=== PATIENT | male | born 1950 | race Caucasian/White ===

== ENCOUNTER 2017-03-02 16:18 | Inpatient (IN) | payer MEDICARE ==
[~2017-03-02] VITALS: Ht 165.1 cm; Wt 57.0 kg
--- NOTE | ~2017-03-02 | O ---
[place], [place] OPERATIVE NOTE NAME: BRETT BLAKE SR UNIT #: [id number] ROOM: 526 DOCTOR: FLAVIA RUANO MD BIRTHDATE: [birth year] DOS: 03/03/2017 GASTROENDOSCOPIC REPORT. INDICATIONS: This is a 67-year-old patient who has presented with tiredness, has been evaluated in his doctor's office, was found to have H and H of 8 and 27, microcytic indices and therefore, the patient had to be admitted for definitive evaluation. The patient has been on ibuprofen 800 mg periodically. PAST MEDICAL HISTORY: Hypothyroidism, gastroesophageal reflux. PAST SURGICAL HISTORY: None. SOCIAL HISTORY: Nonsmoker; however, tobacco user. FAMILY HISTORY: Noncontributory. ALLERGIES: No known medication. MEDICATIONS: Synthroid and Zofran. PROCEDURE: Today's procedure part of investigation is panendoscopy plus biopsy. PREMEDICATION: Versed and Diprivan. SCOPE: Olympus forward-viewing gastroscope Q10 video. REPORT: After putting the patient in the left lateral position and after application of lubricant to the scope, the scope was introduced. Thereafter, under direct visualization, I advanced through the length of the esophagus without difficulty. Hiatal hernia, which is 3 cm was noticed. Gastric pouch was entered. Gastritis was seen. Antral erosions, a small ulceration was noticed. Biopsy obtained. Duodenal bulb, second and third part free of ulcer and lesion obstruction. Air was suctioned out. The patient was extubated after GI reflection of the scope and tolerated the procedure well. IMPRESSION: Multi small erosions in the gastric pouch greater and lesser curvature and antrum, small ulcerations all secondary to nonsteroidal anti-inflammatory, hiatal hernia, gastritis. PLAN AND DISCUSSION: Protonix 40 mg daily would suffice management of the above. However, this patient requires to have 1 unit of packed cell at least, of transfusion to overcome his tiredness, hopefully and also he needs a colonoscopy which is going to be organized as in or outpatient. Workup in progress. He looks very cachectic, we are going to also obtain a screening CT scan of the abdomen and pelvis. Workup in progress. [place], [place] OPERATIVE NOTE NAME: BRETT BLAKE SR UNIT #: [id number] ROOM: 526 DOCTOR: FLAVIA RUANO MD BIRTHDATE: [birth year] FLAVIA RUANO MD CM:OPRECORD:OPERATIVE NOTE [id number] FLAVIA RUANO MD 03/03/17 1430 interface
--- NOTE | ~2017-03-02 | CON ---
[place], [place] REPORT OF CONSULTATION [id number] UN[facility] #: [id number] ROOM: 526 DOCTOR: ALBERTO SANDY MD BIRTHDATE: [birth year] DOS: 03/04/2017 REASON FOR CONSULTATION: Tachycardia. HISTORY OF PRESENT ILLNESS: The patient is a 67-year-old man who has no previously documented history of heart disease or arrhythmias. He was hospitalized on 03/02/2017 after having routine blood work done at the [facility] in [place]. His hemoglobin, 6 months ago, had been 13, but it was now 8.0. He did admit to recent increased fatigue and dyspnea along with chronic constipation. He was found to have a microcytic anemia and heme-positive stools. An upper endoscopy showed gastritis with multiple small erosions and small ulcerations, felt to be due to nonsteroidal anti-inflammatory drugs, etc. It did not appear as though there was any active bleeding or that the potential for blood loss was enough to account for his anemia. He is therefore being scheduled for a colonoscopy on 03/05/2017. In the hospital on a monitor, he has been noted to have several short runs of tachycardia with heart rates as high as 180 beats per minute. The patient is totally asymptomatic from these, but does state that he has been told that his heart rate goes fast as to when he has a lot of doctors in the room. The patient believes that this is a stress reaction and we were asked to see him to assist in its evaluation. PAST MEDICAL HISTORY: Includes: 1. Hypothyroidism. 2. Gastroesophageal reflux disease. 3. Chronic constipation. The patient denies any history of coronary artery disease, myocardial infarction, stroke, hypertension, diabetes or hyperlipidemia. MEDICATIONS: Prior to admission, vitamin B12 1000 mcg p.o. daily, levothyroxine 88 mcg daily, mirtazapine 45 mg at bedtime, Zofran 2 mg b.i.d., prazosin 7 mg at bedtime and simvastatin 10 mg at bedtime. ALLERGIES: The patient has no known drug allergies. REVIEW OF SYSTEMS: The patient denies diplopia or loss of vision. He denies lightheadedness or syncope. He does admit to increased dyspnea and fatigue lately. He denies nausea or vomiting. He denies hemoptysis or hematemesis. He denies fevers, chills, sweats or recent weight change. He denies any focal weakness. He denies any change in bowel or bladder habits, but he does have chronic constipation. He denies hematochezia or melena. He denies any blood in his urine. He denies any peripheral edema. He has not had any swollen joints. He denies heat or cold intolerance and denies polydipsia or polyuria. He has not had any skin rashes lately. The remainder of the review of systems is negative except as noted above. FAMILY HISTORY: Negative for early coronary artery disease, although his father did have a history of coronary artery disease and his mother had a history of [place], [place] REPORT OF CONSULTATION NAME: BRETT BLAKE SR UNIT #: [id number] ROOM: 526 DOCTOR: ALBERTO SANDY MD BIRTHDATE: [birth year] diabetes. SOCIAL HISTORY: The patient is retired from his job as a factory laborer. He does not drink alcohol, but he has smoked. PHYSICAL EXAMINATION: GENERAL: The patient is a slender white male who is awake, alert and oriented. He does appear to be quite anxious. VITAL SIGNS: Pulse is 87 and regular, blood pressure is 108/62. He is afebrile. He weighs 57 kg and has a body mass index of 20.9. HEENT: Normocephalic, atraumatic. Extraocular muscles are intact. Sclerae are clear. Pupils are equal, round and reactive to light. The oral mucosa is moist. Tongue is midline. NECK: Supple. He has no jugular distention. Carotids are full. I heard no bruits. He had no neck or supraclavicular masses and no thyromegaly. LUNGS: Respirations were unlabored. His chest was clear to auscultation and percussion. He had no presacral edema or chest wall tenderness. CARDIOVASCULAR: His heart had a regular rhythm with an S4 gallop, but no S3. The PMI was not displaced. He had no precordial heave, lift or thrill and no significant murmurs. ABDOMEN: Soft and normally active without masses, organomegaly or bruits. EXTREMITIES: Showed no edema. Peripheral pulses were easily palpated bilaterally. LABORATORY DATA: His electrocardiogram was unremarkable. An echocardiogram on 03/03/2017 showed normal left ventricular size and function with an ejection fraction of 70%. No valve abnormalities or pericardial effusion were seen. Hemoglobin today after transfusion is 9.4. White count was 7100, platelet count 226,000. Sodium 140, potassium 3.7, BUN 19, creatinine 1.11. Sugar is 142. Serial troponin levels are normal. TSH is slightly elevated at 6.35. I did review the patient's rhythm strips. They show an AV phu reentrant tachycardia. I did not see anything that looked like atrial fibrillation. IMPRESSION: 1. Atrioventricular phu reentrant tachycardia. 2. Anemia with heme-positive stools. Upper endoscopy shows gastritis. Colonoscopy is pending. 3. History of hypothyroidism, on replacement. Currently, he is chemically mildly hypothyroid. PLAN: The patient does have brief runs of AV phu reentrant tachycardia, but no symptoms. I think that if necessary, we can treat this with beta blockers, but for now, I think that we can just proceed with his colonoscopy as scheduled and make further adjustments in medications as needed after the colonoscopy has been completed. [place], [place] REPORT OF CONSULTATION NAME: LOU BRETT WANG UNIT #: [id number] ROOM: 526 DOCTOR: ALBERTO SANDY MD BIRTHDATE: [birth year] We will follow him with his other physicians and we thank the hospitalist physicians for asking our advice regarding his care. ALBERTO SANDY MD CM:CONSTR:REPORT OF CONSULTATION 12 03/04/17 [id number] interface
--- NOTE | ~2017-03-02 | O ---
[place], [place] OPERATIVE NOTE NAME: BRETT BLAKE SR UNIT #: [id number] ROOM: 526 DOCTOR: FLAVIA RUANO MD BIRTHDATE: [birth year] DOS: GASTROENDOSCOPIC REPORT. HISTORY OF PRESENT ILLNESS: The patient has presented with one of the complaints being anemia, also past medical history of gastroesophageal reflux, hypothyroidism, GERD. PAST SURGICAL HISTORY: Nil. SOCIAL HISTORY: Tobacco use, nonalcohol consumer. FAMILY HISTORY: Noncontributory. ALLERGIES: No known medication. MEDICATIONS: Medication list has been reviewed. PROCEDURE: Today's procedure part of investigation is colonoscopy in search of source of anemia. PREMEDICATION: Versed and Diprivan. SCOPE: Olympus folding colonoscope 10L video. REPORT: After putting the patient in the left lateral position and after application of lubricant to the scope, the scope was introduced; thereafter, under direct visualization, advanced through the length of colon with difficulty in the left side and till I pass the splenic flexure and mid transverse colon and onward, solid column of the stool is appreciated and despite large volume of lavage is . Therefore, the scope was gradually withdrawn. The patient extubated, tolerated procedure well. IMPRESSION: Retained solid stool in the colon. PLAN AND DISCUSSION: We are going to schedule this patient as outpatient for colonoscopy with 2 days prep protocol and as far as his other endoscopic finding from prior endoscopy is concerned, multiple small gastric erosions and small antral ulcerations have been identified, which secondary to nonsteroidal anti-inflammatory and also his other findings previously have been hiatal hernia and gastritis. He can be fed regular diet, discharged and followed up as outpatient. His latest blood count has been reassessed and H and Hof 8.8 and 29.9 with microcytic indices and normal platelet count has been recognized. [place], [place] OPERATIVE NOTE NAME: BRETT BLAKE SR UNIT #: [id number] ROOM: 526 DOCTOR: FLAVIA RUANO MD BIRTHDATE: [birth year] FLAVIA RUANO MD CM:OPRECORD:OPERATIVE NOTE [id number] FLAVIA RUANO MD 03/05/17 1445 interface
[~2017-03-02 16:18] MED LIST: SEPTRA DS 800 M1 TAB PO; SYNTHROID,LEVO88 MCG PO; ZITHROMAX250 MG PO; Zofran4 MG PO
[2017-03-02 16:24] VITALS: BP 135/73
[2017-03-02 16:59] LABS: BASO % 0.6 % (0.0-1.0); EOS # 0.1 10*3/uL (0.0-0.4); EOS % 0.7 % (1.0-4.0); HEMATOCRIT 27.7 % (42.0-52.0); LYMPH # 1.5 10*3/uL (1.3-4.4); LYMPH % 21.3 % (27.0-41.0); MEAN CELL VOLUME 78.2 fl (80.0-94.0); MEAN CORPUSCULAR HGB 22.6 pg (27.0-31.0); MEAN CORPUSCULAR HGB CONC 28.9 g/dl (33.0-37.0); MEAN PLATELET VOLUME 9.1 fl (9.6-12.3); MONO # 0.5 10*3/uL (0.1-1.0); MONO % 6.9 % (3.0-9.0); NEUT % 70.2 % (47.0-73.0); PLATELET COUNT AUTOMATED 239 10*3/uL (130-400); RED BLOOD COUNT 3.54 10*6/uL (4.50-5.90); RED CELL DISTRI WIDTH 16.3 % (0-14.5); WHITE BLOOD COUNT 7.1 10*3/uL (4.8-10.8)
[2017-03-02 17:16] LABS: ALBUMIN 3.3 gm/dl (3.1-4.5); ALKALINE PHOSPHATASE 74 U/L (45-117); BUN 19 mg/dl (7-24); CHLORIDE 111 mmol/L (98-107); CREATININE 1.09 mg/dL (0.70-1.30); IRON 12 ug/dL (65-175); LIPASE 129 U/L (73-393); MAGNESIUM 2.1 mg/dL (1.5-2.1); POTASSIUM 3.9 mmol/L (3.5-5.1); SGOT/AST 22 IU/L (3-35); SGPT/ALT 22 U/L (12-78); SODIUM 142 mmol/L (136-145); TOTAL PROTEIN 6.8 gm/dL (6.4-8.2)
[2017-03-02 17:17] LABS: CKMB 1.1 ng/ml (0.5-3.6); CPK 58 U/L (39-308)
[2017-03-02 17:18] LABS: ACT PARTIAL THROMBO TIME 21.4 SECONDS (20.8-31.5)
[2017-03-02 17:20] LABS: TROPONIN I < 0.015 ng/ml (<0.045)
[2017-03-02 18:03] VITALS: BP 122/77
[2017-03-02 18:06] LABS: FERRITIN 9.9 ng/mL (22.0-322.0)
[2017-03-02 18:48] VITALS: BP 124/74
--- NOTE | 2017-03-02 20:15 | NUR ---
REPORT FROM FRANK JIMENEZ RN
[2017-03-02 20:21] VITALS: BP 113/72
--- NOTE | 2017-03-02 20:25 | NUR ---
REPORT CALLED TO JAROD ON 5E, PATIENT INFORMED. PATIENT IS 109 SINUS TACHYCARDIC ON MONITOR. IV INTACT. PATIENT ALERT, PLEASANT AND COOPERATIVE. 95% ON ROOM AIR.
--- NOTE | 2017-03-02 20:37 | NUR ---
A 67, admitted to , under the services of SOUMYA Hernandez DO with a diagnosis of ANEMIA. Chief complaint is SHORTNESS OF BREATH. Patient arrived via stretcher from ER. Monitor applied. Initial assessment completed. Vital signs taken and recorded. SOUMYA HERNANDEZ DO notified of admission to the unit. Orders received. See assessment for past medical history, medications and allergies. Patient and/or family oriented to unit. [facility] visitation policy reviewed. Clothing/patient valuable form completed. JOAQUIM ARMSTRONG
[2017-03-02 21:00] VITALS: BP 107/79
--- NOTE | 2017-03-02 21:02 | NUR ---
MED REC COMPLETED WITH PATIENT ALERT AND ORIENTED TO PERSON PLACE AND TIME BY MEDICATION LIST FROM HOME
[2017-03-02] MEDS ORDERED: PRAZOSIN HCL2 MG PO (21:07)
[2017-03-02] MEDS ORDERED: MIRTAZAPINE45 MG PO (21:10)
[2017-03-02] MEDS ORDERED: PRAZOSIN HCL5 MG PO (21:10)
[2017-03-02] MEDS ORDERED: B-121000 MCG PO (21:11)
[2017-03-02] MEDS ORDERED: SIMVASTATIN10 MG PO (21:11)
[2017-03-03] VITALS (9 sets, daily range): BP systolic 92–113; BP diastolic 46–75
--- NOTE | 2017-03-03 02:06 | NUR ---
PATIENT MEDICATED WTH PRN TYLENOL FOR HEADACHE RATED 7/10 ON A 0/10 PAIN SCALE
--- NOTE | 2017-03-03 02:21 | NUR ---
24 HR chart check completed.
--- NOTE | 2017-03-03 03:06 | NUR ---
PATIENT STATES MEDICATION NOT EFFECTIVE
--- NOTE | 2017-03-03 05:44 | NUR ---
PATIENT MEDICATED WITH PRN NORCO FOR HEADACHE RATED 8/10 ON A 0/10 PAIN SCALE
[2017-03-03 06:26] LABS: BASO % 0.7 % (0.0-1.0); EOS # 0.1 10*3/uL (0.0-0.4); EOS % 2.3 % (1.0-4.0); HEMATOCRIT 28.3 % (42.0-52.0); HEMOGLOBIN 8.1 g/dl (14.0-18.0); LYMPH # 1.5 10*3/uL (1.3-4.4); LYMPH % 25.2 % (27.0-41.0); MEAN CELL VOLUME 79.1 fl (80.0-94.0); MEAN CORPUSCULAR HGB 22.6 pg (27.0-31.0); MEAN CORPUSCULAR HGB CONC 28.6 g/dl (33.0-37.0); MEAN PLATELET VOLUME 10.1 fl (9.6-12.3); MONO # 0.5 10*3/uL (0.1-1.0); MONO % 8.6 % (3.0-9.0); NEUT # 3.8 10*3/uL (2.3-7.9); PLATELET COUNT AUTOMATED 263 10*3/uL (130-400); RED BLOOD COUNT 3.58 10*6/uL (4.50-5.90); RED CELL DISTRI WIDTH 16.5 % (0-14.5)
[2017-03-03 06:54] LABS: ACT PARTIAL THROMBO TIME 21.5 SECONDS (20.8-31.5)
[2017-03-03 06:59] LABS: BUN 22 mg/dl (7-24); CHLORIDE 110 mmol/L (98-107); CHOLESTEROL 133 mg/dL (<200); CREATININE 1.05 mg/dL (0.70-1.30); HDL CHOLESTEROL 67 mg/dl (40-60); LDL CHOLESTEROL 56 mg/dL (9-159); MAGNESIUM 2.2 mg/dL (1.5-2.1); PHOSPHOROUS 3.6 mg/dL (2.5-4.9); POTASSIUM 3.8 mmol/L (3.5-5.1); SODIUM 142 mmol/L (136-145); TRIGLYCERIDES 50 mg/dl (<150); VLDL CHOLESTEROL 10 mg/dL (6-40)
--- NOTE | 2017-03-03 09:02 | NUR ---
Kennel Hand in to talk to patient. Patient states lives at HOME IN APARTMENT ALONE with . There are 3 steps in the home. Physician: SHERIF Pharmacy: [facility] Home health services: NONE Patient's level of ADLs: INDEPENDENT Patient has working utilities: YES DME: NONE Follow-up physician's appointment after d/c: WILL BE MADE PRIOR TO DC Does patient want to access PORTAL?: Discharge plan HOME. REJI RANKIN PT [facility] ST[facility]. WILLING TO GO TO [facility] IF BED AVAILABLE. CALLED [facility] AND INFO GIVEN TO JOSE ALEJANDRO WHO STATES A QUALITY IMPROVEMENT COORDINATOR WILL BE IN TOUCH WITH ME. I HAVE PROVIDED MY PH NUMBER.
--- NOTE | 2017-03-03 09:40 | NUR ---
CLINICALS FAXED TO [facility] AT [facility].
--- NOTE | 2017-03-03 10:30 | NUR ---
IN TO SEE PATIENT AT THIS TIME. OCCULT STOOL + UPON EXAM.
--- NOTE | 2017-03-03 11:07 | NUR ---
JAQUI NEWTON'S CELL AND NOTIFIED OF CONSULT
--- NOTE | 2017-03-03 13:46 | NUR ---
FLEET MAINTENANCE MANAGER VS. PER [facility] AT [facility], THEY HAVE A BED AND WILL SEND TRANSPORTATION. PT DOESNT WANT TO GO NOW. WANTS TO STAY HERE UNDER HIS MEDICARE. INFORMED HE MAY HAVE COPAY OR DEDUCTABLE WITH MEDICARE THAT [facility] DOESNT PAY. STILL WANTS TO STAY HERE. [facility] NOTIFIED. ASKED NURSE REGULATOR OPERATOR FOR [facility] TO INFORM DR DAO. REFUSAL TO TRANSFER FORM FAXED TO [facility] AND BECKY DE LEON IN BILLING.
[2017-03-03 17:54] LABS: BUN 19 mg/dl (7-24); CHLORIDE 105 mmol/L (98-107); CREATININE 1.13 mg/dL (0.70-1.30); PHOSPHOROUS 2.6 mg/dL (2.5-4.9); POTASSIUM 3.6 mmol/L (3.5-5.1); SODIUM 140 mmol/L (136-145)
--- NOTE | 2017-03-03 20:00 | NUR ---
PATIENT LYING IN BED, VISITORS AT BEDSIDE. PATIENT STATED HE IS FEELING BETTER. FAMILY IS WANTING TO TALK TO THE DR. IN THE AM. PATIENT LEFT WITH CALL LIGHT IN REACH.
--- NOTE | 2017-03-03 23:38 | NUR ---
24 HR chart check completed.
[2017-03-04] VITALS (8 sets, daily range): BP systolic 85–126; BP diastolic 52–62
[2017-03-04 06:10] LABS: HEMOGLOBIN 7.3 g/dl (14.0-18.0); MEAN CELL VOLUME 77.9 fl (80.0-94.0); MEAN CORPUSCULAR HGB 22.7 pg (27.0-31.0); MEAN CORPUSCULAR HGB CONC 29.2 g/dl (33.0-37.0); MEAN PLATELET VOLUME 10.2 fl (9.6-12.3); PLATELET COUNT AUTOMATED 226 10*3/uL (130-400); RED BLOOD COUNT 3.21 10*6/uL (4.50-5.90); RED CELL DISTRI WIDTH 16.6 % (0-14.5); WHITE BLOOD COUNT 7.1 10*3/uL (4.8-10.8)
[2017-03-04 06:41] LABS: MICROCYTOSIS SLIGHT; TOTAL CELLS COUNTED 100 #CELLS
[2017-03-04 06:42] LABS: ACANTHOCYTES FEW; PLATELET SUFFICIENCY NORMAL (NORMAL); SCHISTOCYTES FEW
[2017-03-04 06:48] LABS: ALKALINE PHOSPHATASE 62 U/L (45-117); BUN 19 mg/dl (7-24); CHLORIDE 105 mmol/L (98-107); CREATININE 1.11 mg/dL (0.70-1.30); POTASSIUM 3.7 mmol/L (3.5-5.1); SGOT/AST 17 IU/L (3-35); SGPT/ALT 20 U/L (12-78); SODIUM 140 mmol/L (136-145); TOTAL PROTEIN 6.4 gm/dL (6.4-8.2)
--- NOTE | 2017-03-04 07:30 | NUR ---
ASSUMED CARE OF PT AT THIS TIME, PT ALERT AND ORIENTED SITTING UP IN BED, VOICES NO CONCERNS AT THIS TIME
--- NOTE | 2017-03-04 10:05 | NUR ---
BLOOD INITIATED AT THIS TIME.
--- NOTE | 2017-03-04 12:40 | NUR ---
BLOOD COMPLETE AT THIS TIME, PT TOLERATED WELL.
--- NOTE | 2017-03-04 14:04 | NUR ---
CALL PLACED TO R/T INCREASED HEART RATE, DR PURCELL STATES THAT WILL CONTINUE TO MONITOR
--- NOTE | 2017-03-04 14:52 | NUR ---
CALL PLACED TO DR CABALLERO OFFICE REGARDING NEW ORDER FOR CONSULT, SPOKE WITH FERNIE
[2017-03-04 15:09] LABS: HEMATOCRIT 31.6 % (42.0-52.0); HEMOGLOBIN 9.4 g/dl (14.0-18.0)
--- NOTE | 2017-03-04 20:00 | NUR ---
WATCHING TV WITH SON PRESENT. RESPIRATIONS EASY. LUNGS DIMINISHED WITH POSTERIOR BASE CRACKLES. PULSE OX 98% RA. ABD SOFT WITH NORMOACTIVE BOWEL SOUNDS. COLO PREP CONTINUED WITH PATIENT TOLERATING. OFFERED AND EDUCATED REGARDING TEDS AND SCDS, PATIENT ADAMENTLY DECLINED. CALL LIGHT WITHIN REACH. NO VOICED COMPLAINTS
--- NOTE | 2017-03-04 22:00 | NUR ---
CONTINUES TO DRINK COLO PREP.
[2017-03-05] VITALS (8 sets, daily range): BP systolic 108–127; BP diastolic 64–78
--- NOTE | 2017-03-05 00:30 | NUR ---
REMAINS AWAKE. RESPIRATIONS EASY. VSS. AWARE OF NPO STATUS FOR TESTING IN AM. CALL LIGHT WITHIN REACH. NO VOICED COMPLAINTS
--- NOTE | 2017-03-05 02:30 | NUR ---
REMAINS AWAKE. STATES COLO PREP INEFFECTIVE UP TO THIS POINT. PATIENT ENCOUARGED TO CLOSE EYES AND ATTEMPT TO GET SOME REST. VOICED UNDERSTANDING. WILL MONITOR
--- NOTE | 2017-03-05 04:30 | NUR ---
RESTING WITH EYES CLOSED. RESPIRATIONS EASY. CALL LIGHT WITHIN REACH
--- NOTE | 2017-03-05 06:00 | NUR ---
FLEETS ENEMA GIVEN. PATIENT TOLERATED WELL. NO BM DESPITE COLO PREP
[2017-03-05 07:24] LABS: BASO % 0.1 % (0.0-1.0); HEMATOCRIT 29.9 % (42.0-52.0); HEMOGLOBIN 8.8 g/dl (14.0-18.0); LYMPH # 1.2 10*3/uL (1.3-4.4); LYMPH % 7.6 % (27.0-41.0); MEAN CELL VOLUME 79.9 fl (80.0-94.0); MEAN CORPUSCULAR HGB 23.5 pg (27.0-31.0); MEAN CORPUSCULAR HGB CONC 29.4 g/dl (33.0-37.0); MEAN PLATELET VOLUME 10.3 fl (9.6-12.3); MONO # 0.9 10*3/uL (0.1-1.0); MONO % 5.7 % (3.0-9.0); PLATELET COUNT AUTOMATED 242 10*3/uL (130-400); RED BLOOD COUNT 3.74 10*6/uL (4.50-5.90); RED CELL DISTRI WIDTH 16.8 % (0-14.5); WHITE BLOOD COUNT 16.2 10*3/uL (4.8-10.8)
[2017-03-05 07:57] LABS: BUN 19 mg/dl (7-24); CHLORIDE 108 mmol/L (98-107); CREATININE 1.16 mg/dL (0.70-1.30); POTASSIUM 3.9 mmol/L (3.5-5.1); SODIUM 141 mmol/L (136-145)
--- NOTE | 2017-03-05 08:00 | NUR ---
RESTING COMFORTABLY WITH NO VOICED C/O OFFERED. SEE SHIFT ASSESSMENT.
--- NOTE | 2017-03-05 11:27 | NUR ---
SPOKE WITH DR Daniel LIMA AT DR RUANO'S REQUEST TO INFORM HER THAT FROM GI STAND POINT, PT CAN BE DISCHARGED & SCHEDULE OP COLONOSCOPY.
[2017-03-05] MEDS ORDERED: PHARMASSURE FO0.4 MG PO (16:22)
[2017-03-05] MEDS ORDERED: FEROSUL325 MG PO (16:22)
--- NOTE | 2017-03-05 18:12 | NUR ---
Discharge instructions reviewed with patient/family. Patient receptive and verbalizes understanding. Written instructions given to patient/family. WENDY BARAJAS
== END 2017-03-05 18:12 | disposition home or self-care (01) | DRG 378 ==
LOC: ED 16:18 → 5E 18:41 → EDHOLD 18:41 → 5E 19:42
PROVIDERS: Emergency Medicine; Internal Medicine; ADMIT Internal Medicine
PROC: 0DJD8ZZ Inspection of Lower Intestinal Tract, Via Natural or Artificial Opening Endoscopic (ICD-10-PCS; principal; 2017-03-02)
PROC: 0DB68ZX Excision of Stomach, Via Natural or Artificial Opening Endoscopic, Diagnostic (ICD-10-PCS; 2017-03-03)
PROC: 30233N1 Transfusion of Nonautologous Red Blood Cells into Peripheral Vein, Percutaneous Approach (ICD-10-PCS; 2017-03-04)
DX: K25.4 Chronic or unspecified gastric ulcer with hemorrhage (principal); R65.10 Systemic inflammatory response syndrome (SIRS) of non-infectious origin without acute organ dysfunction; I48.0 Paroxysmal atrial fibrillation; E87.8 Other disorders of electrolyte and fluid balance, not elsewhere classified; E44.1 Mild protein-calorie malnutrition; I47.1 Supraventricular tachycardia; J44.9 Chronic obstructive pulmonary disease, unspecified; K21.9 Gastro-esophageal reflux disease without esophagitis; E03.9 Hypothyroidism, unspecified; D50.9 Iron deficiency anemia, unspecified; E53.8 Deficiency of other specified B group vitamins; I49.1 Atrial premature depolarization; K29.00 Acute gastritis without bleeding; T39.395A Adverse effect of other nonsteroidal anti-inflammatory drugs [NSAID], initial encounter; K44.9 Diaphragmatic hernia without obstruction or gangrene; K59.09 Other constipation; Z71.6 Tobacco abuse counseling; Z72.0 Tobacco use; Z87.01 Personal history of pneumonia (recurrent); Z68.20 Body mass index [BMI] 20.0-20.9, adult; Z83.3 Family history of diabetes mellitus; Z82.49 Family history of ischemic heart disease and other diseases of the circulatory system; Z79.899 Other long term (current) drug therapy; F17.200 Nicotine dependence, unspecified, uncomplicated

== ENCOUNTER 2017-04-30 16:04 | Emergency (ER) | payer MEDICARE, OTHER ==
[~2017-04-30] VITALS: Ht 165.1 cm; Wt 56.7 kg
[~2017-04-30 16:04] MED LIST changes: +B-121000 MCG PO; +FEROSUL325 MG PO; +MIRTAZAPINE45 MG PO; +PHARMASSURE FO0.4 MG PO; +PRAZOSIN HCL2 MG PO; +PRAZOSIN HCL5 MG PO; +SIMVASTATIN10 MG PO
[2017-04-30] MEDS ORDERED: CLEOCIN HCL300 MG PO (17:06)
== END 2017-04-30 17:52 | disposition home or self-care (01) ==
LOC: ED 16:04
DX: L72.3 Sebaceous cyst (principal); Z79.899 Other long term (current) drug therapy; K21.9 Gastro-esophageal reflux disease without esophagitis; I48.0 Paroxysmal atrial fibrillation; E03.9 Hypothyroidism, unspecified; E87.8 Other disorders of electrolyte and fluid balance, not elsewhere classified; F17.200 Nicotine dependence, unspecified, uncomplicated

== ENCOUNTER 2018-04-29 11:02 | Inpatient (IN) | payer OTHER, MEDICARE ==
[~2018-04-29] VITALS: Ht 165.1 cm; Wt 52.8 kg
--- NOTE | ~2018-04-29 | EKG ---
[place], [place] ELECTROCARDIOGRAM REPORT NAME: BRETT BLAKE SR UNIT #: [id number] ROOM: 421 DOCTOR: LUCAS DRAFT REPORT BIRTHDATE: [birth year] [facility] Test Date: 2018-04-29 Test Time: 12:10:55 Pat Name: BRETT BLAKE Department: Room: 421 Gender: M [employer] Sigma Black Trainer: Dyana Burroughs : 1950 Requested By: ABRAHAM PURCELL Order Number: [id number] Reading MD: Anton Chandler MD Measurements Intervals [place] Rate: 97 P: 86 [place]: 70 QRS: -71 QRSD: 79 T: 59 QT: 352 QTc: 447 Interpretive Statements Sinus tachycardia Frequent premature atrial complexes No previous ECG available for comparison Electronically Signed On 04-30-2018 13:32:19 PDT by Anton Chandler MD CM:EKGRPT:ELECTROCARDIOGRAM REPORT 1210 1332 ABRAHAM GARVIN DRAFT REPORT ABRAHAM PURCELL DO
[~2018-04-29 11:02] MED LIST changes: +CLEOCIN HCL300 MG PO
[2018-04-29 11:06] VITALS: BP 135/83
[2018-04-29 11:38] LABS: BASO % 0.4 % (0.0-1.0); EOS # 0.1 10*3/uL (0.0-0.4); EOS % 1.6 % (1.0-4.0); HEMATOCRIT 41.3 % (42.0-52.0); LYMPH # 1.5 10*3/uL (1.3-4.4); LYMPH % 18.9 % (27.0-41.0); MEAN CELL VOLUME 97.9 fl (80.0-94.0); MEAN CORPUSCULAR HGB 30.8 pg (27.0-31.0); MEAN CORPUSCULAR HGB CONC 31.5 g/dl (33.0-37.0); MEAN PLATELET VOLUME 8.4 fl (9.6-12.3); MONO # 0.5 10*3/uL (0.1-1.0); MONO % 6.4 % (3.0-9.0); NEUT # 5.6 10*3/uL (2.3-7.9); NEUT % 72.3 % (47.0-73.0); PLATELET COUNT AUTOMATED 259 10*3/uL (130-400); RED BLOOD COUNT 4.22 10*6/uL (4.50-5.90); RED CELL DISTRI WIDTH 12.8 % (0-14.5); WHITE BLOOD COUNT 7.7 10*3/uL (4.8-10.8)
[2018-04-29 11:48] LABS: ACT PARTIAL THROMBO TIME 22.9 SECONDS (20.8-31.5)
[2018-04-29 11:53] LABS: ALKALINE PHOSPHATASE 69 U/L (45-117); BUN 10 mg/dl (7-24); CHLORIDE 109 mmol/L (98-107); LIPASE 83 U/L (73-393); POTASSIUM 3.7 mmol/L (3.5-5.1); SGOT/AST 17 IU/L (3-35); SGPT/ALT 12 U/L (12-78); SODIUM 146 mmol/L (136-145); TOTAL PROTEIN 7.1 gm/dL (6.4-8.2)
[2018-04-29 11:55] LABS: TROPONIN I < 0.015 ng/ml (<0.045)
[2018-04-29 12:30] VITALS: BP 131/72
[2018-04-29 14:00] VITALS: BP 132/78
[2018-04-29 15:20] VITALS: BP 122/80
[2018-04-29 16:00] VITALS: BP 122/80
[2018-04-29] MEDS ORDERED: IRON325 M1 PO (16:23)
[2018-04-29] MEDS ORDERED: VITAMIN D-32000 UNI1 PO (16:23)
[2018-04-29] MEDS ORDERED: VITAMIN B121000 MC1 PO (16:23)
[2018-04-29 20:00] VITALS: BP 102/86
[2018-04-30] VITALS: BP 109/52
[2018-04-30 06:04] LABS: MEAN CELL VOLUME 98.9 fl (80.0-94.0); MEAN CORPUSCULAR HGB 30.8 pg (27.0-31.0); MEAN CORPUSCULAR HGB CONC 31.1 g/dl (33.0-37.0); MEAN PLATELET VOLUME 8.8 fl (9.6-12.3); PLATELET COUNT AUTOMATED 215 10*3/uL (130-400); RED BLOOD COUNT 3.51 10*6/uL (4.50-5.90); WHITE BLOOD COUNT 17.4 10*3/uL (4.8-10.8)
[2018-04-30 06:08] LABS: HEMATOCRIT 34.7 % (42.0-52.0); HEMOGLOBIN 10.8 g/dl (14.0-18.0)
[2018-04-30 06:33] LABS: ACT PARTIAL THROMBO TIME 21.7 SECONDS (20.8-31.5)
[2018-04-30 06:35] LABS: ALBUMIN 2.4 gm/dl (3.1-4.5); BUN 13 mg/dl (7-24); CHLORIDE 109 mmol/L (98-107); CHOLESTEROL 112 mg/dL (<200); PHOSPHOROUS 3.4 mg/dL (2.5-4.9); POTASSIUM 4.2 mmol/L (3.5-5.1); SGOT/AST 14 IU/L (3-35); SGPT/ALT 10 U/L (12-78); SODIUM 143 mmol/L (136-145); TOTAL PROTEIN 5.8 gm/dL (6.4-8.2); TRIGLYCERIDES 41 mg/dl (<150); VLDL CHOLESTEROL 8 mg/dL (6-40)
[2018-04-30 06:41] LABS: ALKALINE PHOSPHATASE 62 U/L (45-117); FREE T4 0.96 ng/dl (0.76-1.46); HDL CHOLESTEROL 35 mg/dl (40-60); LDL CHOLESTEROL 69 mg/dL (9-159)
[2018-04-30 07:08] LABS: TOTAL CELLS COUNTED 100 #CELLS
[2018-04-30 07:09] LABS: BURR CELLS FEW; PLATELET SUFFICIENCY NORMAL (NORMAL)
[2018-04-30 07:10] LABS: ACANTHOCYTES FEW
[2018-04-30 07:38] LABS: VITAMIN D, 25-HYDROXY 69.4 ng/mL (30-100)
[2018-04-30 08:26] VITALS: BP 138/70
[2018-04-30 12:00] VITALS: BP 104/61
[2018-04-30 16:00] VITALS: BP 110/60
[2018-04-30 20:00] VITALS: BP 112/58
[2018-05-01] VITALS: BP 100/66
[2018-05-01 07:08] LABS: HEMATOCRIT 34.5 % (42.0-52.0); HEMOGLOBIN 10.9 g/dl (14.0-18.0); MEAN CELL VOLUME 98.3 fl (80.0-94.0); MEAN CORPUSCULAR HGB 31.1 pg (27.0-31.0); MEAN CORPUSCULAR HGB CONC 31.6 g/dl (33.0-37.0); PLATELET COUNT AUTOMATED 244 10*3/uL (130-400); RED BLOOD COUNT 3.51 10*6/uL (4.50-5.90); RED CELL DISTRI WIDTH 13.2 % (0-14.5); WHITE BLOOD COUNT 17.9 10*3/uL (4.8-10.8)
[2018-05-01 07:34] LABS: ALBUMIN 2.4 gm/dl (3.1-4.5); ALKALINE PHOSPHATASE 63 U/L (45-117); BUN 18 mg/dl (7-24); CHLORIDE 106 mmol/L (98-107); CREATININE 0.92 mg/dL (0.70-1.30); POTASSIUM 4.1 mmol/L (3.5-5.1); SGOT/AST 9 IU/L (3-35); SGPT/ALT 8 U/L (12-78); SODIUM 141 mmol/L (136-145); TOTAL PROTEIN 5.7 gm/dL (6.4-8.2)
[2018-05-01 07:49] LABS: BURR CELLS FEW; OVALOCYTES FEW; PLATELET SUFFICIENCY NORMAL (NORMAL); TOTAL CELLS COUNTED 100 #CELLS
[2018-05-01 08:00] VITALS: BP 110/82
[2018-05-01 12:00] VITALS: BP 135/71
[2018-05-01 16:00] VITALS: BP 107/76
[2018-05-01 20:00] VITALS: BP 101/58
[2018-05-02] VITALS: BP 105/64
[2018-05-02 06:46] LABS: HEMATOCRIT 37.8 % (42.0-52.0); HEMOGLOBIN 12.1 g/dl (14.0-18.0); MEAN CELL VOLUME 97.2 fl (80.0-94.0); MEAN CORPUSCULAR HGB 31.1 pg (27.0-31.0); MEAN PLATELET VOLUME 9.1 fl (9.6-12.3); PLATELET COUNT AUTOMATED 279 10*3/uL (130-400); RED BLOOD COUNT 3.89 10*6/uL (4.50-5.90); RED CELL DISTRI WIDTH 13.4 % (0-14.5); WHITE BLOOD COUNT 17.6 10*3/uL (4.8-10.8)
[2018-05-02 06:58] LABS: BUN 17 mg/dl (7-24); CHLORIDE 104 mmol/L (98-107); CREATININE 0.95 mg/dL (0.70-1.30); POTASSIUM 4.1 mmol/L (3.5-5.1); SODIUM 142 mmol/L (136-145)
[2018-05-02 07:19] LABS: BURR CELLS FEW; OVALOCYTES FEW; PLATELET SUFFICIENCY NORMAL (NORMAL); TOTAL CELLS COUNTED 100 #CELLS
[2018-05-02 08:00] VITALS: BP 135/77
[2018-05-02 12:00] VITALS: BP 97/70
[2018-05-02 16:00] VITALS: BP 106/65
[2018-05-02 20:00] VITALS: BP 96/53
[2018-05-03] VITALS: BP 105/60
[2018-05-03 06:59] LABS: HEMATOCRIT 37.7 % (42.0-52.0); HEMOGLOBIN 12.2 g/dl (14.0-18.0); MEAN CELL VOLUME 97.2 fl (80.0-94.0); MEAN CORPUSCULAR HGB 31.4 pg (27.0-31.0); MEAN CORPUSCULAR HGB CONC 32.4 g/dl (33.0-37.0); PLATELET COUNT AUTOMATED 294 10*3/uL (130-400); RED BLOOD COUNT 3.88 10*6/uL (4.50-5.90); RED CELL DISTRI WIDTH 13.4 % (0-14.5); WHITE BLOOD COUNT 13.1 10*3/uL (4.8-10.8)
[2018-05-03 07:51] LABS: PLATELET SUFFICIENCY NORMAL (NORMAL); TOTAL CELLS COUNTED 100 #CELLS
[2018-05-03 08:00] VITALS: BP 131/69
[2018-05-03 11:44] VITALS: BP 99/67
[2018-05-03] MEDS ORDERED: PREDNISONE10 MG PO (12:23)
[2018-05-03] MEDS ORDERED: LEVAQUIN500 M2 PO (12:23)
[2018-05-03 16:00] VITALS: BP 110/75
== END 2018-05-03 16:30 | disposition home or self-care (01) | DRG 871 ==
LOC: ED 11:02 → EDHOLD 14:03 → 4E 14:03
PROVIDERS: Emergency Medicine; Family Medicine; Internal Medicine
DX: A41.9 Sepsis, unspecified organism (principal); J96.01 Acute respiratory failure with hypoxia; J18.1 Lobar pneumonia, unspecified organism; E87.0 Hyperosmolality and hypernatremia; I47.1 Supraventricular tachycardia; D72.810 Lymphocytopenia; E87.8 Other disorders of electrolyte and fluid balance, not elsewhere classified; I49.1 Atrial premature depolarization; J44.9 Chronic obstructive pulmonary disease, unspecified; F43.10 Post-traumatic stress disorder, unspecified; K21.9 Gastro-esophageal reflux disease without esophagitis; I48.0 Paroxysmal atrial fibrillation; F17.210 Nicotine dependence, cigarettes, uncomplicated; D64.9 Anemia, unspecified; R79.82 Elevated C-reactive protein (CRP); R79.89 Other specified abnormal findings of blood chemistry; E03.9 Hypothyroidism, unspecified; Z71.6 Tobacco abuse counseling

== ENCOUNTER 2021-09-03 20:16 | Inpatient (IN) | payer OTHER ==
[~2021-09-03] VITALS: Ht 165 cm; Wt 54.4 kg
[~2021-09-03 20:16] MED LIST changes: +IRON325 M1 PO; +LEVAQUIN500 M2 PO; +PREDNISONE10 MG PO; +VITAMIN B121000 MC1 PO; +VITAMIN D-32000 UNI1 PO
[2021-09-03 20:31] VITALS: BP 86/63
[2021-09-03 20:52] LABS: HEMATOCRIT 41.9 % (42.0-52.0); MEAN CELL VOLUME 96.8 fl (80.0-94.0); MEAN PLATELET VOLUME 8.9 fl (9.6-12.3); PLATELET COUNT AUTOMATED 269 10*3/uL (130-400); RED BLOOD COUNT 4.33 10*6/uL (4.50-5.90); RED CELL DISTRI WIDTH 14.1 % (0-14.5); WHITE BLOOD COUNT 24.3 10*3/uL (4.8-10.8)
[2021-09-03 20:55] LABS: MANUAL DIFF REFLEX YES
[2021-09-03 21:05] LABS: ACT PARTIAL THROMBO TIME 28.5 SECONDS (20.0-32.1); INTERNATIONAL NORM RATIO 1.1 (2.0-3.5)
[2021-09-03 21:15] LABS: ALKALINE PHOSPHATASE 83 U/L (45-117); BUN 25 mg/dl (7-24); CHLORIDE 99 mmol/L (98-107); POTASSIUM 4.4 mmol/L (3.5-5.1); SGOT/AST 19 IU/L (3-35); SGPT/ALT 20 U/L (12-78); SODIUM 138 mmol/L (136-145); TOTAL PROTEIN 6.7 gm/dL (6.4-8.2)
[2021-09-03 21:17] LABS: PLATELET SUFFICIENCY NORMAL (NORMAL); TOTAL CELLS COUNTED 100 #CELLS
[2021-09-04] VITALS (7 sets, daily range): BP systolic 87–126; BP diastolic 51–71
[2021-09-04] MEDS ORDERED: BUPROPION HYDR100 MG PO (00:43)
[2021-09-04 04:24] LABS: ABG BASE EXCESS 5.8 mmol/L (-2.0-2.0); ARTERIAL BLOOD GAS PH 7.401 (7.35-7.45); ARTERIAL BLOOD GAS PO2 112.9 (80-90)
[2021-09-04 05:38] LABS: BUN 25 mg/dl (7-24); CHLORIDE 105 mmol/L (98-107); CHOLESTEROL 76 mg/dL (<200); CREATININE 1.26 mg/dL (0.70-1.30); POTASSIUM 4.6 mmol/L (3.5-5.1); SGOT/AST 14 IU/L (3-35); SGPT/ALT 15 U/L (12-78); SODIUM 140 mmol/L (136-145)
[2021-09-04 05:41] LABS: ALKALINE PHOSPHATASE 68 U/L (45-117); LDL CHOLESTEROL 31 mg/dL (9-159); TOTAL PROTEIN 5.7 gm/dL (6.4-8.2); TRIGLYCERIDES 62 mg/dl (<150)
[2021-09-04 05:47] LABS: FREE T4 1.17 ng/dl (0.76-1.46); THYROID STIM HORMONE (HS) 0.872 uIU/ml (0.358-4.75)
[2021-09-04 06:19] LABS: MEAN CELL VOLUME 98.7 fl (80.0-94.0); MEAN CORPUSCULAR HGB 30.1 pg (27.0-31.0); MEAN CORPUSCULAR HGB CONC 30.5 g/dl (33.0-37.0); MEAN PLATELET VOLUME 9.3 fl (9.6-12.3); PLATELET COUNT AUTOMATED 239 10*3/uL (130-400); RED BLOOD COUNT 3.95 10*6/uL (4.50-5.90); RED CELL DISTRI WIDTH 14.4 % (0-14.5); WHITE BLOOD COUNT 23.7 10*3/uL (4.8-10.8)
[2021-09-04 06:43] LABS: MANUAL DIFF REFLEX YES
[2021-09-04 07:00] LABS: BURR CELLS FEW; TOTAL CELLS COUNTED 100 #CELLS
[2021-09-04 07:01] LABS: PLATELET SUFFICIENCY NORMAL (NORMAL); POLYCHROMASIA SLIGHT
[2021-09-04 08:32] LABS: VITAMIN D, 25-HYDROXY 41.8 ng/mL (30-100)
[2021-09-05] VITALS: BP 91/55
[2021-09-05 05:33] LABS: ALKALINE PHOSPHATASE 68 U/L (45-117); BUN 24 mg/dl (7-24); CHLORIDE 107 mmol/L (98-107); POTASSIUM 4.5 mmol/L (3.5-5.1); SGOT/AST 14 IU/L (3-35); SGPT/ALT 16 U/L (12-78); SODIUM 142 mmol/L (136-145); TOTAL PROTEIN 5.4 gm/dL (6.4-8.2)
[2021-09-05 06:05] LABS: HEMATOCRIT 37.4 % (42.0-52.0); MEAN CELL VOLUME 100.8 fl (80.0-94.0); MEAN CORPUSCULAR HGB 30.2 pg (27.0-31.0); MEAN CORPUSCULAR HGB CONC 29.9 g/dl (33.0-37.0); MEAN PLATELET VOLUME 9.6 fl (9.6-12.3); PLATELET COUNT AUTOMATED 216 10*3/uL (130-400); RED BLOOD COUNT 3.71 10*6/uL (4.50-5.90); RED CELL DISTRI WIDTH 14.3 % (0-14.5); WHITE BLOOD COUNT 18.5 10*3/uL (4.8-10.8)
[2021-09-05 06:15] LABS: MANUAL DIFF REFLEX YES
[2021-09-05 06:56] LABS: BURR CELLS FEW; PLATELET SUFFICIENCY NORMAL (NORMAL); TOTAL CELLS COUNTED 100 #CELLS; TOXIC GRANULATION SLIGHT
[2021-09-05 06:57] LABS: POLYCHROMASIA SLIGHT
[2021-09-05 08:00] VITALS: BP 97/67
[2021-09-05 12:00] VITALS: BP 99/54
[2021-09-05 16:00] VITALS: BP 112/61
[2021-09-05 20:00] VITALS: BP 108/61
[2021-09-06] VITALS: BP 132/82
[2021-09-06 06:17] LABS: HEMATOCRIT 38.1 % (42.0-52.0); MEAN CORPUSCULAR HGB 30.2 pg (27.0-31.0); MEAN CORPUSCULAR HGB CONC 30.2 g/dl (33.0-37.0); MEAN PLATELET VOLUME 9.5 fl (9.6-12.3); PLATELET COUNT AUTOMATED 265 10*3/uL (130-400); RED BLOOD COUNT 3.81 10*6/uL (4.50-5.90); RED CELL DISTRI WIDTH 14.4 % (0-14.5); WHITE BLOOD COUNT 19.9 10*3/uL (4.8-10.8)
[2021-09-06 06:24] LABS: ALKALINE PHOSPHATASE 77 U/L (45-117); BUN 27 mg/dl (7-24); CHLORIDE 105 mmol/L (98-107); CREATININE 0.99 mg/dL (0.70-1.30); POTASSIUM 4.6 mmol/L (3.5-5.1); SGOT/AST 31 IU/L (3-35); SGPT/ALT 35 U/L (12-78); SODIUM 143 mmol/L (136-145); TOTAL PROTEIN 5.5 gm/dL (6.4-8.2)
[2021-09-06 06:27] LABS: MANUAL DIFF REFLEX YES
[2021-09-06 07:06] LABS: PLATELET SUFFICIENCY NORMAL (NORMAL); TOTAL CELLS COUNTED 100 #CELLS
[2021-09-06 08:00] VITALS: BP 133/75
[2021-09-06 12:00] VITALS: BP 124/90; BP 129/70
[2021-09-06 16:00] VITALS: BP 128/74
[2021-09-06 20:00] VITALS: BP 132/67
[2021-09-06 22:00] VITALS: BP 124/62
[2021-09-07] VITALS: BP 127/67
[2021-09-07 06:13] LABS: BUN 23 mg/dl (7-24); CHLORIDE 103 mmol/L (98-107); POTASSIUM 4.4 mmol/L (3.5-5.1); SGOT/AST 47 IU/L (3-35); SGPT/ALT 63 U/L (12-78); SODIUM 141 mmol/L (136-145)
[2021-09-07 06:14] LABS: ALKALINE PHOSPHATASE 76 U/L (45-117); TOTAL PROTEIN 5.2 gm/dL (6.4-8.2)
[2021-09-07 06:21] LABS: HEMATOCRIT 36.8 % (42.0-52.0); MEAN CELL VOLUME 98.4 fl (80.0-94.0); MEAN CORPUSCULAR HGB 30.2 pg (27.0-31.0); MEAN CORPUSCULAR HGB CONC 30.7 g/dl (33.0-37.0); MEAN PLATELET VOLUME 9.4 fl (9.6-12.3); PLATELET COUNT AUTOMATED 268 10*3/uL (130-400); RED BLOOD COUNT 3.74 10*6/uL (4.50-5.90); RED CELL DISTRI WIDTH 14.2 % (0-14.5); WHITE BLOOD COUNT 12.9 10*3/uL (4.8-10.8)
[2021-09-07 06:32] LABS: MANUAL DIFF REFLEX YES
[2021-09-07 07:02] LABS: OVALOCYTES FEW; PLATELET SUFFICIENCY NORMAL (NORMAL); TOTAL CELLS COUNTED 100 #CELLS
[2021-09-07 08:00] VITALS: BP 115/74
[2021-09-07 12:00] VITALS: BP 127/67
[2021-09-07 16:00] VITALS: BP 116/64
[2021-09-07 20:00] VITALS: BP 121/70
[2021-09-08] VITALS: BP 123/70
[2021-09-08 06:10] LABS: BUN 22 mg/dl (7-24); CHLORIDE 102 mmol/L (98-107); POTASSIUM 3.8 mmol/L (3.5-5.1); SGOT/AST 34 IU/L (3-35); SGPT/ALT 63 U/L (12-78); SODIUM 141 mmol/L (136-145)
[2021-09-08 06:11] LABS: ALKALINE PHOSPHATASE 75 U/L (45-117); TOTAL PROTEIN 4.8 gm/dL (6.4-8.2)
[2021-09-08 06:43] LABS: EOS % 0.4 % (1.0-4.0); HEMATOCRIT 36.3 % (42.0-52.0); LYMPH # 0.9 10*3/uL (1.3-4.4); LYMPH % 8.8 % (27.0-41.0); MEAN CELL VOLUME 97.1 fl (80.0-94.0); MEAN CORPUSCULAR HGB 29.9 pg (27.0-31.0); MEAN CORPUSCULAR HGB CONC 30.9 g/dl (33.0-37.0); MEAN PLATELET VOLUME 9.3 fl (9.6-12.3); MONO # 0.9 10*3/uL (0.1-1.0); MONO % 8.2 % (3.0-9.0); NEUT # 8.7 10*3/uL (2.3-7.9); NEUT % 82.3 % (47.0-73.0); PLATELET COUNT AUTOMATED 263 10*3/uL (130-400); RED BLOOD COUNT 3.74 10*6/uL (4.50-5.90); RED CELL DISTRI WIDTH 14.4 % (0-14.5); WHITE BLOOD COUNT 10.6 10*3/uL (4.8-10.8)
[2021-09-08 08:00] VITALS: BP 114/70
[2021-09-08 12:00] VITALS: BP 119/69
[2021-09-08 16:00] VITALS: BP 113/81
[2021-09-08 20:00] VITALS: BP 121/74
[2021-09-09] VITALS: BP 123/73
[2021-09-09 06:21] LABS: BASO % 0.1 % (0.0-1.0); EOS # 0.1 10*3/uL (0.0-0.4); HEMATOCRIT 36.7 % (42.0-52.0); LYMPH % 10.2 % (27.0-41.0); MEAN CELL VOLUME 97.1 fl (80.0-94.0); MEAN CORPUSCULAR HGB 30.4 pg (27.0-31.0); MEAN CORPUSCULAR HGB CONC 31.3 g/dl (33.0-37.0); MEAN PLATELET VOLUME 9.1 fl (9.6-12.3); MONO # 0.8 10*3/uL (0.1-1.0); MONO % 7.8 % (3.0-9.0); NEUT # 7.8 10*3/uL (2.3-7.9); NEUT % 80.6 % (47.0-73.0); PLATELET COUNT AUTOMATED 271 10*3/uL (130-400); RED BLOOD COUNT 3.78 10*6/uL (4.50-5.90); RED CELL DISTRI WIDTH 14.4 % (0-14.5); WHITE BLOOD COUNT 9.6 10*3/uL (4.8-10.8)
[2021-09-09 06:43] LABS: ALKALINE PHOSPHATASE 80 U/L (45-117); BUN 22 mg/dl (7-24); CHLORIDE 103 mmol/L (98-107); POTASSIUM 3.8 mmol/L (3.5-5.1); SGOT/AST 22 IU/L (3-35); SGPT/ALT 52 U/L (12-78); SODIUM 141 mmol/L (136-145); TOTAL PROTEIN 4.9 gm/dL (6.4-8.2)
[2021-09-09 08:00] VITALS: BP 124/78
[2021-09-09] MEDS ORDERED: AUGMENTIN 875-875 MG PO (11:22)
[2021-09-09] MEDS ORDERED: PREDNISONE10 MG PO (11:24)
[2021-09-09 12:00] VITALS: BP 108/78
== END 2021-09-09 14:55 | disposition home health service (06) | DRG 871 ==
LOC: ED 20:16 → EDHOLD 09-04 01:02 → 4E 09-04 01:02
PROVIDERS: Family Medicine; Internal Medicine; Student in an Organized Health Care Education/Training Program; ADMIT Internal Medicine; ATTEND Internal Medicine
PROC: BD1BYZZ Fluoroscopy of Mouth/Oropharynx using Other Contrast (ICD-10-PCS; principal; 2021-09-04)
DX: A41.9 Sepsis, unspecified organism (principal); J69.0 Pneumonitis due to inhalation of food and vomit; N17.0 Acute kidney failure with tubular necrosis; E43 Unspecified severe protein-calorie malnutrition; J96.01 Acute respiratory failure with hypoxia; J44.1 Chronic obstructive pulmonary disease with (acute) exacerbation; J44.0 Chronic obstructive pulmonary disease with (acute) lower respiratory infection; Z68.1 Body mass index [BMI] 19.9 or less, adult; Z66 Do not resuscitate; Z51.5 Encounter for palliative care; R65.20 Severe sepsis without septic shock; D53.9 Nutritional anemia, unspecified; R73.9 Hyperglycemia, unspecified; E83.41 Hypermagnesemia; F17.210 Nicotine dependence, cigarettes, uncomplicated; E03.9 Hypothyroidism, unspecified; K21.9 Gastro-esophageal reflux disease without esophagitis; I48.0 Paroxysmal atrial fibrillation; E78.5 Hyperlipidemia, unspecified; F43.10 Post-traumatic stress disorder, unspecified; Z82.49 Family history of ischemic heart disease and other diseases of the circulatory system; Z71.6 Tobacco abuse counseling; Z83.3 Family history of diabetes mellitus

== ENCOUNTER 2022-03-08 04:08 | Emergency (ER) | payer OTHER ==
[~2022-03-08] VITALS: Ht 165.1 cm; Wt 50.3 kg
[~2022-03-08 04:08] MED LIST changes: +AUGMENTIN 875-875 MG PO; +BUPROPION HYDR100 MG PO
[2022-03-08 04:59] LABS: BASO % 0.6 % (0.0-1.0); EOS # 0.1 10*3/uL (0.0-0.4); EOS % 1.9 % (1.0-4.0); HEMATOCRIT 43.4 % (42.0-52.0); LYMPH # 1.3 10*3/uL (1.3-4.4); MEAN CELL VOLUME 95.2 fl (80.0-94.0); MEAN CORPUSCULAR HGB 30.7 pg (27.0-31.0); MEAN CORPUSCULAR HGB CONC 32.3 g/dl (33.0-37.0); MEAN PLATELET VOLUME 9.4 fl (9.6-12.3); MONO # 0.7 10*3/uL (0.1-1.0); MONO % 10.8 % (3.0-9.0); NEUT # 4.2 10*3/uL (2.3-7.9); NEUT % 65.5 % (47.0-73.0); PLATELET COUNT AUTOMATED 155 10*3/uL (130-400); RED BLOOD COUNT 4.56 10*6/uL (4.50-5.90); RED CELL DISTRI WIDTH 12.5 % (0-14.5); WHITE BLOOD COUNT 6.4 10*3/uL (4.8-10.8)
[2022-03-08 05:09] LABS: ACT PARTIAL THROMBO TIME 24.7 SECONDS (20.0-32.1); INTERNATIONAL NORM RATIO 0.9 (2.0-3.5)
[2022-03-08 05:14] LABS: ALKALINE PHOSPHATASE 107 U/L (45-117); BUN 22 mg/dl (7-24); CHLORIDE 109 mmol/L (98-107); CREATININE 1.05 mg/dL (0.70-1.30); POTASSIUM 4.2 mmol/L (3.5-5.1); SGOT/AST 20 IU/L (3-35); SGPT/ALT 26 U/L (12-78); SODIUM 147 mmol/L (136-145); TOTAL PROTEIN 6.6 gm/dL (6.4-8.2)
== END 2022-03-08 07:45 | disposition home or self-care (01) ==
LOC: ED 04:08
PROVIDERS: Emergency Medicine
DX: J44.9 Chronic obstructive pulmonary disease, unspecified (principal); K21.9 Gastro-esophageal reflux disease without esophagitis; E78.5 Hyperlipidemia, unspecified; E03.9 Hypothyroidism, unspecified; F17.200 Nicotine dependence, unspecified, uncomplicated; Z79.899 Other long term (current) drug therapy